=== PATIENT | male | born 1940 | race Caucasian/White ===

== ENCOUNTER → 2016-03-28 | Outpatient (CLI) | payer MEDICARE ==
[~2016-03-28] VITALS: Ht 171.4 cm; Wt 73.3 kg
[~2016-03-28] MED LIST: ALBU6.7H INH; ASPI81 PO; ASPI81CH3 CHEW; CALC500T35 PO; CIAL5TAB PO; CLAR10CA3 PO; DEXTROSE 5% IN WATE 1000ML INJ 1,000 ML IV SCH; FISH1000 PO; GLUC1CAP16 PO; INSULIN HUMAN REGULAR 1,000 UNITS/10 ML VIAL SQ PRN; LACTATED RINGER'S 1000 ML IV SCH; METOPROLOL TARTRATE 25 MG TAB PO PRN; PANT20 PO; PROPOFOL 200 MG/20 ML AMP IV ONE; SODIUM CHLORID 0.9% 500 ML IV SCH; VITA500030 CHEW; Z.0.NO CURRENT MEDS
[2016-03-28 11:15] VITALS: BP 161/78; PULSE 57; RESP 16; TEMP 97.8; O2SAT 95
[2016-03-28 13:45] VITALS: BP 132/77; PULSE 64; RESP 16; O2SAT 93
--- NOTE | 2016-03-28 22:39 | EKG ---
Date Performed: 03/28/2016 Time Performed: 10:54:15 PTAGE: 76 years EKG: SINUS BRADYCARDIA BORDERLINE ECG PREVIOUS TRACING : 04/22/1997 09.28 DOCTOR: Gregg Jc Interpretating Date/Time 03/28/2016 22:39:22
--- NOTE | 2016-03-29 18:32 | MR ---
cc: MICHELLE ZAVALA M.D., DAVID L. MD DATE: 03/28/2016. PREOPERATIVE DIAGNOSIS: History of colon polyps. POSTOPERATIVE DIAGNOSIS: 3 mm low rectal polyp fulgurated. PROCEDURE: Total colonoscopy with fulguration of polyp SURGEON: Dominic Calvin MD. ANESTHESIA: MAC. INDICATIONS: This is a 76-year-old who has a history of colon polyps including a 1 cm mid rectal polyp. The patient presents for follow-up exam. DESCRIPTION OF THE PROCEDURE IN DETAIL: The Pentax EC [id number] colonoscope was introduced in the anus to the cecum without difficulty in the left lateral position with some left lower quadrant pressure. The valve was identified. The cecum was completely and the scope was slowly withdrawn. The bowel prep was excellent. The above-mentioned polyp was identified and treated. Sigmoid diverticulosis was noted. The patient tolerated the procedure well. PLAN: Recommend colonoscopy in five years. MD GI Chang/COLLETTE /1:20 PM /6:28 PM MTDD
== END ==
LOC: HEND 10:29
PROVIDERS: ATTEND Colon & Rectal Surgery
DX: Z12.11 Encounter for screening for malignant neoplasm of colon (principal); Z86.010 Personal history of colon polyps; K62.1 Rectal polyp; K57.30 Diverticulosis of large intestine without perforation or abscess without bleeding; Z01.810 Encounter for preprocedural cardiovascular examination
CPT/HCPCS: 45388; 93005; 99156; 99157; J7120